=== PATIENT | female | born 1995 | race Caucasian/White ===

== ENCOUNTER 2022-09-16 07:47 | Day surgery (SDC) | payer OTHER ==
[2022-09-16 08:12] VITALS: BMI 31.4
[2022-09-16] MEDS ORDERED: Lactated Ringer's 1,000 ML IV SCH (10:30)
[2022-09-16 10:37] LABS: Hemoglobin 10.7 g/dL (12.0-15.5); Mean Corpuscular HGB CONC 35.2 g/dL (32.0-36.0); Mean Corpuscular Hemoglobin 33.4 pg (27.0-33.0); Mean Platelet Volume 9.9 fl (7.4-10.4); Platelet Count 237 10x3/uL (150-450); RBC Distribution Width 14.9 % (11.5-14.5)
[2022-09-16 11:05] LABS: Uric Acid 6.6 mg/dL (2.6-6.0)
[2022-09-16] MEDS ORDERED: Lactated Ringer's 1,000 ML IV ONE (11:30)
== END 2022-09-16 13:15 | disposition home or self-care (01) ==
LOC: CSHLD/OP 07:47
PROVIDERS: ATTEND Obstetrics & Gynecology
DX: O13.3 Gestational [pregnancy-induced] hypertension without significant proteinuria, third trimester (principal); Z3A.37 37 weeks gestation of pregnancy
CPT/HCPCS: 36415; 81003; 82570; 83615; 84450; 84460; 84550; 85027; 96360; 96361; 99283

== ENCOUNTER 2022-09-28 18:32 | Inpatient (IN) | payer BC, OTHER ==
[2022-09-28 19:39] VITALS: BMI 31.4
[2022-09-28 20:20] LABS: #Monocytes 0.8 10x3/uL (0.0-1.1); %Basophils 0.3 % (0.0-2.0); %Eosinophils 0.3 % (0.0-6.0); %Lymphocytes 24.9 % (18.0-47.0); %Monocytes 8.8 % (0.0-10.0); %Neutrophils 64.7 % (40.0-75.0); Hemoglobin 11.5 g/dL (12.0-15.5); Mean Corpuscular HGB CONC 35.5 g/dL (32.0-36.0); Mean Corpuscular Hemoglobin 33.2 pg (27.0-33.0); Mean Corpuscular Volume 93.6 fl (81.6-98.3); Mean Platelet Volume 10.2 fl (7.4-10.4); Platelet Count 240 10x3/uL (150-450); RBC Distribution Width 14.9 % (11.5-14.5); Red Blood Cell (RBC) Count 3.46 10x6/uL (3.90-5.03); White Blood Cell (WBC) Count 9.3 10x3/uL (3.5-10.5)
[2022-09-28 20:27] LABS: Creatinine, Urine 21.03 mg/dL (47-110); Protein, Urine Random Quant Less than 10 mg/dL (1-14)
[2022-09-28 20:31] LABS: ALT (SGPT) 9 U/L (8-55); AST (SGOT) 14 U/L (5-34); Albumin 3.8 g/dL (3.5-5.0); Alkaline Phosphatase 163 U/L (40-110); Anion Gap 15 mmol/L (10-20); BUN (Urea Nitrogen) 8 mg/dL (7.0-18.7); Bilirubin, Total 0.7 mg/dL (0.2-1.2); Calc. Creatinine Clearance 191 mL/min (70-130); Calcium 9.3 mg/dL (7.8-10.44); Carbon Dioxide 19 mmol/L (22-29); Chloride 106 mmol/L (98-107); Estimated GFR 126; Globulin 3.2 g/dL (2.4-3.5); Glucose 81 mg/dL (70-105); Potassium 3.5 mmol/L (3.5-5.1); Sodium 136 mmol/L (136-145)
[2022-09-28] MEDS ORDERED: CEFAZOLIN 2 GM VIAL ONE (20:40)
[2022-09-28] MEDS ORDERED: Famotidine/PF 20 mg/2ml Vial ONE (20:41)
[2022-09-28] MEDS ORDERED: Oxytocin 10 UNITS/ML VIAL ONE ×2 (20:42→21:37)
[2022-09-28] MEDS ORDERED: Ondansetron PF 4 MG/2 ML Vial ONE (20:42)
[2022-09-28] MEDS ORDERED: Fentanyl 100 MCG/2 ML VIAL ONE ×2 (20:42→22:58)
[2022-09-28] MEDS ORDERED: Morphine PF 10 MG/10 ML VIAL ONE (20:42)
[2022-09-28] MEDS ORDERED: Ketorolac Tromethamine 30 MG/ML VIAL ONE (20:43)
[2022-09-28] MEDS ORDERED: Phenylephrine 40 MG/NS 250 ML 250 ML ONE (20:43)
[2022-09-28] MEDS ORDERED: Ondansetron PF 4 MG/2 ML Vial IVP PRN ×3 (20:45→22:32)
[2022-09-28] MEDS ORDERED: Bicitra 30 ML UDCUP PO SCH (20:45)
[2022-09-28] MEDS ORDERED: CEFAZOLIN 2 GM in Sodium Chloride 0.9% 100 ML IVPB SCH (20:45)
[2022-09-28] MEDS ORDERED: Famotidine/PF 20 mg/2ml Vial SLOW IVP PRN (20:45)
[2022-09-28] MEDS ORDERED: hydrALAZINE 20 MG/ML VIAL SLOW IVP PRN ×2 (20:45→22:32)
[2022-09-28] MEDS ORDERED: Lactated Ringer's 1,000 ML IV SCH (20:45)
[2022-09-28] MEDS ORDERED: Promethazine HCl 25 MG/ML VIAL IM PRN ×2 (20:45→22:29)
[2022-09-28] MEDS ORDERED: ePHEDrine Sulfate 50 MG/10 ML VIAL ONE (20:52)
[2022-09-28 20:57] LABS: HBSAg Index 0.13 S/CO (0-0.99); Hep B Surf Ag Non-Reactive S/CO (NonReactive)
[2022-09-28 20:58] LABS: Syphilis Antibody Nonreactive (Nonreactive); Syphilis Antibody Index 0.06 S/CO (<1.00 Non-Reactive)
[2022-09-28] MEDS ORDERED: Promethazine HCl 25 MG SUPP PR PRN (22:29)
[2022-09-28] MEDS ORDERED: Ondansetron HCl/PF 4 MG/2 ML Vial IVP PRN (22:29)
[2022-09-28] MEDS ORDERED: Moisturizing Cream (Eucerin) 113 GM JAR TOP PRN (22:29)
[2022-09-28] MEDS ORDERED: Naloxone HCl 0.4 mg/ml Vial IV PRN (22:29)
[2022-09-28] MEDS ORDERED: Fentanyl 100 MCG/2 ML VIAL SLOW IVP PRN (22:29)
[2022-09-28] MEDS ORDERED: diphenhydrAMINE 50 MG/ML VIAL IVP PRN (22:29)
[2022-09-28] MEDS ORDERED: L&D-Morphine 4 MG/ML VIAL SLOW IVP PRN (22:29)
[2022-09-28] MEDS ORDERED: Ketorolac Tromethamine 30 MG/ML VIAL IVP PRN (22:29)
[2022-09-28] MEDS ORDERED: Naloxone HCl 0.4 mg/ml Vial IVP PRN ×2 (22:29)
[2022-09-28] MEDS ORDERED: Communication Order-Pharmacy FS SCH (22:30)
[2022-09-28] MEDS ORDERED: Ketorolac Tromethamine 30 MG/ML VIAL IVP SCH (22:30)
[2022-09-28] MEDS ORDERED: Lanolin Ointment 7 GM TUBE TOP PRN (22:32)
[2022-09-28] MEDS ORDERED: Boostrix 0.5 ML (Tdap) VIAL (>/=7 yrs of age) IM ONE (22:32)
[2022-09-28] MEDS ORDERED: Labetalol HCl 200 MG TAB PO SCH (22:45)
[2022-09-29 05:16] LABS: Hemoglobin 10.9 g/dL (12.0-15.5); Mean Corpuscular HGB CONC 36.7 g/dL (32.0-36.0); Mean Corpuscular Hemoglobin 33.9 pg (27.0-33.0); Mean Corpuscular Volume 92.2 fl (81.6-98.3); Mean Platelet Volume 10.2 fl (7.4-10.4); Platelet Count 216 10x3/uL (150-450); RBC Distribution Width 14.5 % (11.5-14.5); Red Blood Cell (RBC) Count 3.22 10x6/uL (3.90-5.03); White Blood Cell (WBC) Count 11.3 10x3/uL (3.5-10.5)
[2022-09-29] MEDS: Ferrous Sulfate 325 MG TAB PO SCH ×2 (08:28→20:10)
[2022-09-29] MEDS: Prenatal Vitamin 1 TAB PO SCH (08:47)
[2022-09-29] MEDS: Docusate 100 MG CAP PO SCH ×2 (08:47→20:10)
[2022-09-29] MEDS ORDERED: Labetalol HCl 200 MG TAB PO SCH (09:00)
[2022-09-29] MEDS ORDERED: HYDROcodone/Acetaminophen 5/325 mg Tablet PO PRN (10:30)
[2022-09-29] MEDS: Ibuprofen 800 MG TAB PO SCH (13:26)
[2022-09-29] MEDS: HYDROcodone/Acetaminophen 5/325 mg Tablet PO PRN ×2 (14:44→20:10)
[2022-09-29] MEDS: Simethicone Chewable 80 MG TAB PO PRN (21:11)
[2022-09-30] MEDS: HYDROcodone/Acetaminophen 5/325 mg Tablet PO PRN ×6 (00:47→22:05)
[2022-09-30] MEDS: Ibuprofen 800 MG TAB PO SCH ×3 (05:53→22:04)
[2022-09-30] MEDS: Prenatal Vitamin 1 TAB PO SCH (09:08)
[2022-09-30] MEDS: Docusate 100 MG CAP PO SCH ×2 (09:08→22:04)
[2022-09-30] MEDS: Simethicone Chewable 80 MG TAB PO PRN ×2 (09:09→22:04)
[2022-09-30] MEDS: Ferrous Sulfate 325 MG TAB PO SCH ×2 (13:52→22:15)
[2022-10-01] MEDS: HYDROcodone/Acetaminophen 5/325 mg Tablet PO PRN ×3 (01:57→12:00)
[2022-10-01] MEDS: Ibuprofen 800 MG TAB PO SCH (06:02)
[2022-10-01] MEDS: Prenatal Vitamin 1 TAB PO SCH (08:12)
[2022-10-01] MEDS: Docusate 100 MG CAP PO SCH (08:12)
[2022-10-01] MEDS: Ferrous Sulfate 325 MG TAB PO SCH (08:13)
[2022-10-01 08:57] VITALS: BP 135/80; TEMP 99.2
== END 2022-10-01 12:10 | disposition home or self-care (01) | DRG 787 ==
LOC: CSHLD/OP 18:32 → CSHLD 20:24 → CSHPP 09-29 00:32
PROVIDERS: ADMIT Obstetrics & Gynecology; ATTEND Obstetrics & Gynecology
PROC: 10D00Z1 Extraction of Products of Conception, Low, Open Approach (ICD-10-PCS; principal; 2022-09-28)
PROC: 3E0P05Z Introduction of Adhesion Barrier into Female Reproductive, Open Approach (ICD-10-PCS; 2022-09-28)
DX: O13.4 Gestational [pregnancy-induced] hypertension without significant proteinuria, complicating childbirth (principal); Z3A.38 38 weeks gestation of pregnancy; Z37.0 Single live birth; D62 Acute posthemorrhagic anemia; O90.81 Anemia of the puerperium; O34.211 Maternal care for low transverse scar from previous cesarean delivery; Z79.899 Other long term (current) drug therapy
CPT/HCPCS: 36415; 51702; 80053; 82570; 84156; 84560; 85025; 85027; 86780; 86850; 86900; 86901; 87340; 99285; J1885; J2274; J2405; J2550; J2590; J3010; S0028